=== PATIENT | male | born 1970 | race Caucasian/White ===

== ENCOUNTER 2025-08-10 12:42 | Outpatient (AMB) | payer OTHER, SELFPAY ==
--- NOTE | 2025-08-10 12:52 | MHC.PC.OV ---
Vital Signs 08/10/25 12:54 Height 5 ft 11 in Weight 191 lb 6 oz BMI 26.7 BP 116/74 Blood Pressure Location Lt brachial Position Sitting Respiration 18 Pulse 95 Pulse Source Pulse Oximeter Temp 97.7 F Temp Source Temporal Artery Scan Pulse Oximetry (%) 96 Oxygen Delivery Method Room Air Intake Visit Reasons: [facility]IVATE HOME // PE Request Automatic Head Sawyer Required: No Accompanied by: Self / Same As Patient Allergies No Known Allergies Allergy (Verified 08/10/25 13:16) Medication List - Last Reconciled 08/10/25 by SARAH Gonzalez [id number] 200-62.5-25 mcg (Trelegy Ellipta) 1 inh inhalation DAILY Tobacco use date assessed: 08/10/25 Dental Screening Dental Screen Date: 08/10/25 Did you have a dental visit in the last 12 months?: Yes Did you have a dental problem in the last 6 months where you did not have access to dental care?: No Was dental information given to patient?: Patient has dentist HPI [facility] HOME // PE Request HPI Details Previous PCP: [facility] in [place] Last visit:over a year ago Last PE: same Specialist: no OBGYN:n/a Past medical history: COPD dx about 2 years, smokes about 1/2 to more a day now, hernia repair about 20+ years ago, he believes it was the right side, right first finger tendon rupture from a fall off a roof. Medications: Family HX: mother breast and lung ca (was a smoker) passed at 66, paternal uncle prostate ca, Problem: The patient is a 55 year old individual presenting to establish care with a primary care provider. The patient had a previous primary care provider at [facility] over a year ago and is establishing care at the encouragement of the patient's for yearly physicals. The patient was diagnosed with COPD approximately two years ago and manages it with Trelegy, which the patient finds effective. The patient has been obtaining medication refills from an urgent care center while awaiting this appointment and uses an albuterol rescue inhaler on very hot or cold days. The patient reports smoking approximately half a pack of cigarettes per day, having reduced from two packs per day after the COPD diagnosis, and has a smoking history dating back to age 8 or 9. The patient's mother, who was a smoker, from cancer at age 66 or 67, which had spread from breast and lung primaries. The patient's paternal uncle had prostate cancer and is now fine. Past surgical history includes a right groin hernia repair over 20 years ago and two surgeries on the wrist to repair a snapped tendon in a finger. Health Maintenance - The patient's last physical exam was over a year ago. - The patient is due for routine health maintenance and a yearly physical. - Due to a significant smoking history, lung cancer screening with a low-dose CT scan of the chest was discussed, and the patient is interested in proceeding. - Comprehensive blood work, including kidney function, liver function, and cholesterol levels, will be ordered. Social History - Tobacco Use: The patient has a history of smoking since age 8 or 9 and currently smokes about half a pack of cigarettes per day, reduced from two packs. - Alcohol Use: The patient drinks 4-6 beers, 3-4 times per week, and does not drink liquor. - Employment: The patient works full-time and owns a [employer] business. - Family Status: The patient is . [facility] Medical History COPD (chronic obstructive pulmonary disease) Surgical History History of hernia surgery Family History Mother Lung cancer Breast cancer in situ Paternal Uncle Prostate cancer Social History Alcohol intake: current Patient Tobacco Use Status: Current everyday Tobacco user Tobacco use type: Cigarette e-Cigarette/Vaping Use: Never Used Substance Use Type: Marijuana Current occupational status: employed Cognitive needs: No Hearing needs: No Vision needs: No Questionnaire PHQ-9 Over the last 2 weeks, how often have you been bothered by any of the following problems? 1. Little interest or pleasure in doing things: not at all 2. Feeling down, depressed, or hopeless: not at all 3. Trouble falling or staying asleep, or sleeping too much: not at all 4. Feeling tired or having little energy: not at all 5. Poor appetite or overeating: not at all 6. Feeling bad about yourself - or that you are a failure or have let yourself or your family down: not at all 7. Trouble concentrating on things, such as reading the newspaper or watching television: not at all 8. Moving or speaking so slowly that other people could have noticed. Or the opposite - being so fidgety or restless that you have been moving around a lot more than usual: not at all 9. Thoughts that you would be better off or of hurting yourself in some way: not at all Total score: 0 Depression Screening Interpretation: Negative Depression Screening Done: Yes 65019 - PHQ-9 Billing: Yes Source: Developed by Drs. Adama Gruber, Marleny Hawthorne, Henrique Mulligan and colleagues, with an educational milagros from [employer]. Thrive Questionnaire Date Thrive assessed: 08/10/25 What is your living situation today?: I have a steady place to live Within the past 12 months, did the food you bought not last and you didn't have the money to get more?: Never true Within the past 12 months, did you worry whether your food would run out before you got money to buy more?: Never true Do you have trouble paying for medicines?: No Do you have trouble getting transportation to medical appointments?: No Do you have trouble paying your heating and electricity bill?: No Do you have trouble taking care of your child, family member or friend?: No Do you have trouble with day-to-day activities such as bathing, preparing meals, shopping, managing finances, etc.?: No Are you currently unemployed and looking for a job?: No Are you interested in more education?: No Please select the resources that you would like help with: None THRIVE Score: 0 AUDIT C Alcohol Use Questionnaire (AUDIT-C) 1. How often do you have a drink containing alcohol?: 4 or more times a week 2. How many drinks containing alcohol do you have on a typical day when you are drinking?: 5 or 6 3. How often do you have six or more drinks on one occasion?: Less than monthly Total Score: 7 JOHN-7 AMB Questionnaire JOHN-7 Date JOHN - 7 assessed: 08/10/25 Feeling nervous, anxious, or on edge: 0 = Not at all Not being able to stop or control worryin = Not at all Worrying too much about different things: 0 = Not at all Trouble relaxin = Not at all Being so restless that it is hard to sit still: 0 = Not at all Becoming easily annoyed or irritable: 0 = Not at all Feeling afraid as if something awful might happen: 0 = Not at all Total JOHN-7 score (0-4 normal; 5-9 mild; 10-14 moderate; 15-21 severe): 0 Source: Developed by Drs. Adama Gruber, Marleny Hawthorne, Henrique Mulligan and colleagues, with an educational milagros from [employer]. JOHN-7 Assessment Billing JOHN-7 Assessment Tool: JOHN-7 Assessment 30277 Review of Systems Narrative Review of Systems - Respiratory: Reports shortness of breath related to COPD, particularly in very hot or cold weather. - Cardiovascular: Denies chest pain. - Gastrointestinal: Denies stomach pain except when hungry. - Reports acid reflux with excessive soda intake but denies heartburn. - Genitourinary: Reports nocturia once per night. - Musculoskeletal: Reports intermittent muscular cramping under the ribs when reaching backward. - Denies calf pain. Const Denies headache(s) Eyes Denies loss of vision ENT Denies vertigo, Denies dizziness, Denies headache(s) and Denies sore throat Card Denies chest pain, Denies leg edema, Denies lightheadedness and Reports dyspnea (Chronic, no increase, extreme weather cold or hot) Resp Denies cough, Denies hemoptysis, Reports dyspnea (Chronic, no increase, extreme weather cold or hot) and Denies wheezing GI Denies abdominal pain, Denies melena, Denies constipation, Reports heartburn (Depending on what he eats), Denies diarrhea and Denies vomiting Denies dysuria, Denies urinary frequency and Denies urinary urgency Musc Denies arthralgias, Denies joint swelling, Reports muscle cramps (Intermittent cramping on the need bilateral ribcage with certain position), Denies numbness and Denies tingling Neuro Denies Abnormal speech present, Denies behavioral changes, Denies vertigo, Denies dizziness, Denies headache(s), Denies loss of vision, Denies memory loss, Denies numbness and Denies tingling Psych Denies anxiety, Denies behavioral changes, Denies depression, Denies memory loss and Denies panic attacks Mt/Lymph Denies easy bleeding and Denies easy bruising Aller/Immun Denies wheezing Physical exam (Primary Care) Vital Signs: Last Vital Signs Temp 97.7 F 08/10/25 12:54 Pulse 95 08/10/25 12:54 Resp 18 08/10/25 12:54 BP 116/74 08/10/25 12:54 Pulse Ox 96 08/10/25 12:54 Oxygen Delivery Method Room Air 08/10/25 12:54 BMI result Body Mass Index 26.7 Tobacco/Smoking Status: Tobacco use Status Tobacco use date assessed 08/10/25 08/10/25 13:07 Patient Tobacco Use Status Current everyday Tobacco 08/10/25 13:07 Tobacco use type Cigarette 08/10/25 13:07 e-Cigarette/Vaping Use Never Used 08/10/25 13:07 PHQ-9: PHQ-9 Score PHQ-9: Total score 0 08/10/25 13:07 Depression Screening Interpretation: Negative Thrive Assessment: Date of Thrive Assessment Date Thrive assessed 08/10/25 08/10/25 13:07 Const General: healthy appearing, no acute distress, alert and awake Nutritional Appearance: well nourished Orientation/consciousness: oriented to person, oriented to place and oriented to time HENMT Ears: TM's normal bilaterally General nose exam: Normal nasal mucous membranes and turbinates present Eyes Conjunctivae: conjunctivae normal Sclerae: sclerae normal Pupils: Equal, round and reactive pupils present Neck Neck: Yes no lymphadenopathy and Yes no JVD Thyroid: Thyroid normal Carotids: no bruits Resp Effort & Inspection: normal respiratory effort and not tachypneic Auscultation: no crackles, no rales, no rhonchi and no wheezes Cardio Rate: regular rate Rhythm: regular rhythm Heart sounds: no murmurs and normal S1 and S2 GI Palpation (GI): Soft to palpation, nontender, no hepatomegaly and no splenomegaly Auscultation: normal bowel sounds Skin General skin exam: no rashes or lesions noted and dry skin Neuro General: oriented to person, oriented to place and oriented to time Cranial nerves: Yes Equal, round and reactive pupils present Speech: No Abnormal speech present Gait exam (Neuro): Normal gait present Motor exam (neuro): no tremor noted Extrem Right upper extremity: full ROM Left upper extremity: full ROM Right lower extremity: full ROM; no edema Left lower extremity: full ROM; no edema Psych Mental Status: mental status grossly normal Speech and movement: Normal speech and movement present Affect: normal affect Attitude: cooperative Thought process: Normal thought process present Coding Level of Care Code New Pt Level 4 (50522) Diagnoses Muscle cramps R25.2 Smoker F17.200 Chronic obstructive pulmonary disease, unspecified COPD type J44.9 COPD type: unspecified COPD Encounter to establish care with new provider Z76.89 Additional Codes JOHN-7 Assessment Billing - JOHN-7 Assessment Tool: JOHN-7 Assessment 03751 ([id number]) PHQ-9 - 44294 - PHQ-9 Billing: Yes ([id number]) Time Spent (min) 36 Assessment & Plan Assessment & Plan (1) Muscle cramps: Code(s): R25.2 - Cramp and spasm Category: Medical (2) Smoker: Code(s): F17.200 - Nicotine dependence, unspecified, uncomplicated Category: Social Hx (3) COPD (chronic obstructive pulmonary disease): Code(s): J44.9 - Chronic obstructive pulmonary disease, unspecified Category: Medical Qualifiers: COPD type: unspecified COPD Qualified Code(s): J44.9 - Chronic obstructive pulmonary disease, unspecified (4) Encounter to establish care with new provider: Code(s): Z76.89 - Persons encountering health services in other specified circumstances Category: Medical Plan Plan Patient was informed and verbally consented to the use of an ambient scribe for clinic note documentation during this visit. 1. New Patient Visit The patient is establishing care as a new patient. A comprehensive physical exam is scheduled in seven weeks. Fasting comprehensive labs, including kidney function, liver function, and cholesterol, will be ordered to be completed before the follow-up visit. 2. Chronic Obstructive Pulmonary Disease The patient has a known history of COPD. A refill for the patient's Trelegy inhaler was sent to the pharmacy. A prescription for an albuterol rescue inhaler was also sent to the pharmacy for use as needed for shortness of breath, particularly in extreme temperatures. 3. Tobacco Use Disorder The patient has an extensive smoking history and currently smokes half a pack per day. Given the patient's long-term smoking, a low-dose CT scan of the chest for lung cancer screening was discussed. The patient is eligible and expressed interest in this screening. 4. Muscle cramps Positional muscle cramps, primarily when the patient stretches backwards. This is intermittent in general and does not appear to be concerning. Encouraged proper body mechanics and adequate fluid hydration. We will continue to monitor. Discussion Notes I discussed with the patient the plan to establish primary care, which includes obtaining comprehensive fasting labs to assess organ function and cholesterol levels. A follow-up appointment in approximately seven weeks will be scheduled for a complete physical exam and review of these results. I provided medication refills for the patient's COPD, including Trelegy and a new prescription for an albuterol rescue inhaler. Due to the extensive smoking history, we discussed that the patient qualifies for and is interested in a low-dose CT scan of the chest for lung cancer screening, which we will look into. The patient was instructed on the location and requirements for the lab work. Patient Instructions - Go for fasting blood work, preferably on morning. - Do not eat or drink anything for 8-12 hours before the test. - You may drink black coffee without cream or sugar. - The lab is a walk-in service located on the first floor of the main hospital building in front of this office. - Prescriptions for your Trelegy and albuterol rescue inhaler have been sent to [facility]. - Please schedule a follow-up appointment at the checkout desk for a complete physical in about seven weeks. Orders: Orders Complete Blood Count Auto Diff Today J44.9 - Chronic obstructive pulmonary disease, unspecified, Z00.00 - Encounter for general adult medical examination without abnormal findings Lipid Panel Today J44.9 - Chronic obstructive pulmonary disease, unspecified, Z00.00 - Encounter for general adult medical examination without abnormal findings TSH reflex Free T4 Today J44.9 - Chronic obstructive pulmonary disease, unspecified, Z00.00 - Encounter for general adult medical examination without abnormal findings Hemoglobin A1c Today J44.9 - Chronic obstructive pulmonary disease, unspecified, Z00.00 - Encounter for general adult medical examination without abnormal findings Comprehensive [place]. Panel Fast Today J44.9 - Chronic obstructive pulmonary disease, unspecified, Z00.00 - Encounter for general adult medical examination without abnormal findings UA CC w/rflx Micro + Cult Today J44.9 - Chronic obstructive pulmonary disease, unspecified, Z00.00 - Encounter for general adult medical examination without abnormal findings Vitamin D 25-OH Total Today J44.9 - Chronic obstructive pulmonary disease, unspecified, Z00.00 - Encounter for general adult medical examination without abnormal findings PSA,Total (Free>4and<10) Today J44.9 - Chronic obstructive pulmonary disease, unspecified, Z00.00 - Encounter for general adult medical examination without abnormal findings Referrals Lung Cancer Screening Referral F17.200 - Nicotine dependence, unspecified, uncomplicated Medications: New albuterol sulfate 90 mcg/actuation (Ventolin HFA) 2 puffs inhalation Q4-6H PRN 8.5 grams 3RF shortness of breath or wheezing [id number] 200-62.5-25 mcg (Trelegy Ellipta) 1 inh inhalation DAILY 60 ea 3RF
[2025-08-10 12:54] VITALS: BP 116/74; PULSE 95; RESP 18; TEMP 36.5; O2SAT 96; BMI 26.7
== END 2025-08-10 13:43 | disposition home or self-care (01) ==
LOC: HO.HMCH 12:43
DX: R25.2 Cramp and spasm (principal); F17.200 Nicotine dependence, unspecified, uncomplicated; J44.9 Chronic obstructive pulmonary disease, unspecified; Z76.89 Persons encountering health services in other specified circumstances

== ENCOUNTER → 2025-08-10 12:42 | Outpatient (BNVA) | payer OTHER, SELFPAY | DX: R25.2 Cramp and spasm (principal); J44.9 Chronic obstructive pulmonary disease, unspecified; F17.210 Nicotine dependence, cigarettes, uncomplicated; Z76.89 Persons encountering health services in other specified circumstances | CPT/HCPCS: 96127 ==

== ENCOUNTER 2025-08-13 08:06 | Outpatient (REF) | payer OTHER, SELFPAY ==
[2025-08-13 08:20] LABS: MANUAL DIFF FLAG NO
[2025-08-13 08:39] LABS: Hematocrit 46.1 % (42.0-52.0); Hemoglobin 15.2 g/dl (14.0-18.0); Imm Gran Abs Auto 0.04 X10*3/uL (0.00-0.03); Imm Gran Pct Auto 0.4 % (0.0-0.4); Lymphocytes Absolute Auto 1.7 X10*3/uL (1.2-4.9); Mean Corpuscular HGB Conc 33.0 g/dl (31.0-36.0); Mean Corpuscular Hemoglobin 30.5 pg (27.0-33.0); Mean Corpuscular Volume 92.6 fL (80.0-98.0); NRBC Abs Auto 0.000 X10*3/uL (0.0-0.012); NRBC Pct Auto 0.0 /100WBC (0.0-0.2); Platelet Count 352 X10*3/uL (160-400); Red Blood Count 4.98 X10*6/uL (4.60-5.80); White Blood Count 10.0 X10*3/uL (4.8-10.8)
[2025-08-13 08:46] LABS: Appearance Urine Clear; Glucose Urine UA Negative (Negative); PH 5.5 (5.0-9.0); Specific Gravity - Urine 1.025 (1.005-1.025); UMIC TRIGGER UACC YES
[2025-08-13 09:24] LABS: Alanine Aminotransferase 38 U/L (0-40); Albumin Level 4.6 g/dL (3.5-5.0); Alkaline Phosphatase 73 U/L (39-117); Anion Gap 12 (12-20); Aspartate Amino Transferase 30 U/L (5-37); Blood Urea Nitrogen 12 mg/dL (9-16); Calcium 9.4 mg/dL (8.4-10.2); Carbon Dioxide 25 mmol/L (22-29); Chloride 108 mmol/L (96-108); Cholesterol 210 mg/dL (<200); Estimated Glomerular Filt Rate > 60; HDL Cholesterol 59 mg/dL (>40); Potassium 4.6 mmol/L (3.3-5.1); Sodium 140 mmol/L (135-145); Total Protein 7.3 g/dL (6.5-8.0); Triglycerides 67 mg/dL (<150)
[2025-08-13 09:34] LABS: PSA,Total (Free>4and<10) 1.66 ng/mL (0.00-4.00)
== END 2025-08-13 08:07 | disposition home or self-care (01) ==
LOC: HO.LAB 08:06
DX: Z00.00 Encounter for general adult medical examination without abnormal findings (principal); Z13.6 Encounter for screening for cardiovascular disorders; Z13.1 Encounter for screening for diabetes mellitus; Z12.5 Encounter for screening for malignant neoplasm of prostate; Z13.21 Encounter for screening for nutritional disorder; Z13.29 Encounter for screening for other suspected endocrine disorder; J44.9 Chronic obstructive pulmonary disease, unspecified
CPT/HCPCS: 36415; 80053; 80061; 81001; 82306; 83036; 84153; 84443; 85025